=== PATIENT | female | born 1980 | race Caucasian/White ===

== ENCOUNTER 2016-04-29 15:40 | Emergency (ER) | payer MEDICAID | END 2016-04-29 17:59 | disposition home or self-care (01) | LOC: ER 15:40 | DX: J01.00 Acute maxillary sinusitis, unspecified (principal); J01.10 Acute frontal sinusitis, unspecified; N30.00 Acute cystitis without hematuria; Z87.891 Personal history of nicotine dependence | CPT/HCPCS: 81001; 87077; 87088; 87186 ==

== ENCOUNTER 2016-05-05 08:17 | Emergency (ER) | payer MEDICAID ==
[2016-05-05] MEDS ORDERED: OPTIRAY 350 100 ML VIAL HMH IV ONE (08:18)
[2016-05-05] MEDS ORDERED: ONDANSETRON 4 MG VIAL ONE (09:09)
[2016-05-05] MEDS ORDERED: MORPHINE 4 MG/ML SYR ONE (09:09)
[2016-05-05] MEDS ORDERED: SODIUM CHLORIDE 0.9% 1,000 ML ONE (09:10)
[2016-05-05] MEDS ORDERED: CEFTRIAXONE 1 GM VIAL ONE (09:34)
[2016-05-05] MEDS ORDERED: SODIUM CHLORIDE 0.9% 100 ML IV ONE (09:35)
== END 2016-05-05 11:47 | disposition home or self-care (01) ==
LOC: ER 08:17
DX: N30.00 Acute cystitis without hematuria (principal); N76.0 Acute vaginitis
CPT/HCPCS: 36415; 74177; 80053; 81001; 85025; 87088; 87491; 87591; 87800; 96361; 96374; 96375; 96376